=== PATIENT | female | born 1990 | race Hispanic/Latino ===

== ENCOUNTER 2024-04-23 17:52 | Emergency (ER) | payer BC ==
[~2024-04-23] VITALS: Ht 152.4 cm; Wt 79.4 kg
[~2024-04-23 17:52] MED LIST: LEVO500T2 PO; TAMS-1 PO
[2024-04-23 18:12] VITALS: BP 129/96; PULSE 81; RESP 18; TEMP 98.6
--- NOTE | 2024-04-23 18:26 | EKG ---
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
[2024-04-23] MEDS ORDERED: hydrOXYzine 25 MG TABLET PO ONE (18:30)
[2024-04-23] MEDS ORDERED: 0.9%NACL 1000ML 1,000 ML IV ONE (18:30)
[2024-04-23 18:53] LABS: BASOPHILS # (AUTO) 0.06 K/uL (0.00-0.20); BASOPHILS % (AUTO) 0.5 % (0.0-5.0); EOSINOPHILS # (AUTO) 0.25 K/uL (0.00-0.70); EOSINOPHILS % (AUTO) 2.2 % (0.0-8.0); HEMATOCRIT 37.7 % (36-48); IMMATURE GRANULOCYTE ABSOLUTE 0.05 K/uL (0-1); LYMPHOCYTES # (AUTO) 3.3 K/uL (1.0-4.8); LYMPHOCYTES % (AUTO) 28.1 % (21.0-51.0); MEAN CORPUSCULAR HEMOGLOBIN 27.1 pg (27.0-33.0); MEAN CORPUSCULAR HGB CONC 32.4 g/dL (32.0-36.0); MEAN CORPUSCULAR VOLUME 83.6 fL (79-99); MONOCYTES # (AUTO) 0.7 K/uL (0.1-1.0); MONOCYTES % (AUTO) 6.3 % (3.0-13.0); NEUTROPHILS # (AUTO) 7.2 K/uL (1.8-7.7); NEUTROPHILS % (AUTO) 62.5 % (40.0-77.0); PLATELET COUNT (AUTO) 226 K/uL (130-400); RED BLOOD CELL COUNT(AUTO) 4.51 MIL/uL (4.00-5.50); RED CELL DISTRIBUTION WIDTH 14.9 % (11.0-15.5); WHITE BLOOD COUNT (AUTO) 11.6 K/uL (4.8-10.8)
[2024-04-23 19:02] LABS: CREATININE 0.7 mg/dL (0.5-1.0); POTASSIUM 3.1 mmol/L (3.5-5.1)
[2024-04-23 19:13] LABS: MAGNESIUM 1.6 mg/dL (1.80-2.40)
--- NOTE | 2024-04-23 19:30 | NUR ---
PATIENT BROUGHT BACK TO ED 15
--- NOTE | 2024-04-23 19:38 | HMCIMG ---
CHEST 1VW REASON: sob COMPARISON: None. FINDINGS: Single view of the chest was obtained. Lungs are clear. Heart size is normal. There is no pulmonary vascular congestion. Mediastinum and bony thorax appear unremarkable. IMPRESSION: 1. Normal single view chest x-ray.
--- NOTE | 2024-04-23 19:55 | ERN ---
ED Note History of Present Illness Stated Complaint: HARD TIME BREATHING Chief Complaint: Shortness of Breath Time Seen by MD: 17:56 Time Seen by Midlevel: 17:56 Dictation: The patient is a 33-year-old female with no past medical history who presents to the emergency department with complaints of chest pain, shortness of breath, bilateral hand cramping for over a year. Patient reports she has been seen multiple times for this problem but is unsure of the diagnosis. Patient denies any anxiety. Denies cough fevers, nausea vomiting or diarrhea or constipation. Patient also reports occasional bright red stools. Denies any rectal pain or trauma. Allergies: Coded Allergies: No Known Drug Allergies (Unverified Allergy, Unknown, 03/17/17) Home Meds Active Scripts Levofloxacin (Levaquin) 500 Mg Tablet, 500 MG PO DAILY, #10 TAB Prov:LYNN GRAY MD 03/20/17 Tamsulosin HCl (Flomax) 0.4 Mg Cap.er.24h, 0.4 MG PO DAILY, #30 CAPSULE.DR Prov:LYNN GRAY MD 03/20/17 Past Medical History Past Medical History: No Pertinent History Surgical History: None History: Not Applicable RN Note Reviewed/Agreed w/PFSH: Yes Review of System Dictation Constitutional: Negative for fever,chills, and weight loss Eyes: Negative for injury, pain,redness, and discharge ENT: Negative for injury,pain or swelling Cardiovascular: Negative for palpitations, and edema positive for chest pain Respiratory: Negative for, cough, and wheezing, positive for shortness of breath Abdomen/GI: Negative for abdominal pain, nausea, vomiting, diarrhea, and constipation Back: Negative for injury and pain : Negative for injury, bleeding and discharge positive for rectal bleeding MS/Extremity: Negative for injury and deformity Skin: Negative for rash, and discoloration Neuro: Negative for headache, weakness, numbness, tingling, and seizure Psych: Negative for suicide ideation, homicidal ideation, and hallucinations Initial Vital Sign VS Vital Signs Date Time Temp Pulse Resp B/P (MAP) Pulse Ox O2 Delivery O2 Flow Rate FiO2 04/23/24 18:12 98.6 81 18 129/96 99 Physical Exam Dictation General: awake, alert, NAD Head/Face: Normocephalic, atraumatic Eyes: PERRL, EOMI, vision at baseline ENT: oral cavity clear, TMs clear, no signs of infection Neck: Trachea midline, supple, no nuchal rigidity Cardiovascular: RRR, normal S1/S2, No MRGs, no JVD Respiratory: CTAB, no respiratory distress, No rales or wheezes Abdomen: Soft, non-tender, non-distended, normal bowel sounds, no guarding or rebound. Skin: Warm, dry, normal turgor, no rash MS/Extremity: Pulses equal, no cyanosis, neurovascular intact, FROM Neuro: COAx4, GCS 15, strength 5/5, CN 2-12 intact, normal cerebellar exam, normal gait, Psych: Normal behavior, mood, and affect normal Results (Laboratory/Radiology) Laboratory/Radiology Laboratory Tests Test 04/23/24 18:30 White Blood Count 11.6 K/uL (4.8-10.8) H Red Blood Count 4.51 MIL/uL (4.00-5.50) Hemoglobin 12.2 g/dL (12.0-16.0) Hematocrit 37.7 % (36-48) Mean Corpuscular Volume 83.6 fL (79-99) Mean Corpuscular Hemoglobin 27.1 pg (27.0-33.0) Mean Corpuscular Hemoglobin Concent 32.4 g/dL (32.0-36.0) Red Cell Distribution Width 14.9 % (11.0-15.5) Platelet Count 226 K/uL (130-400) Mean Platelet Volume 10.9 fL (7.5-10.5) H Immature Granulocyte % (Auto) 0.4 % (0-1) Neutrophils (%) (Auto) 62.5 % (40.0-77.0) Lymphocytes (%) (Auto) 28.1 % (21.0-51.0) Monocytes (%) (Auto) 6.3 % (3.0-13.0) Eosinophils (%) (Auto) 2.2 % (0.0-8.0) Basophils (%) (Auto) 0.5 % (0.0-5.0) Neutrophils # (Auto) 7.2 K/uL (1.8-7.7) Lymphocytes # (Auto) 3.3 K/uL (1.0-4.8) Monocytes # (Auto) 0.7 K/uL (0.1-1.0) Eosinophils # (Auto) 0.25 K/uL (0.00-0.70) Basophils # (Auto) 0.06 K/uL (0.00-0.20) Absolute Immature Granulocyte (auto 0.05 K/uL (0-1) Nucleated Red Blood Cells 0.0 % (0.0-0.19) Sodium Level 135 mmol/L (136-145) L Potassium Level 3.1 mmol/L (3.5-5.1) L Chloride Level 100 mmol/L (101-111) L Carbon Dioxide Level 26 mmol/L (21-32) Blood Urea Nitrogen 8 mg/dL (7-18) Creatinine 0.7 mg/dL (0.5-1.0) Glomerular Filtration Rate Calc 117 mL/min (>90) Random Glucose 99 mg/dL (70-105) Total Calcium 8.6 mg/dL (8.5-10.1) Magnesium Level 1.60 mg/dL (1.80-2.40) L Total Creatine Kinase 57 U/L (21-232) Troponin I High Sensitivity < 4 ng/L (4-50) L Serum Test, Qualitative NEGATIVE (NEGATIVE) REASON: sob ORDERING PHYSICIAN: ALEX KOENIG PROCEDURE: CXR1VW - CHEST 1VW CHEST 1VW REASON: sob COMPARISON: None. FINDINGS: Single view of the chest was obtained. Lungs are clear. Heart size is normal. There is no pulmonary vascular congestion. Mediastinum and bony thorax appear unremarkable. IMPRESSION: 1. Normal single view chest x-ray. Labs Reviewed?: Yes EKG: (+) NSR (Status rhythm), (+) DC (169), (+) QRS (70) EKG Comment: EKG 04/23/2024 1823 ventricular rate 72, regular rate and rhythm, normal sinus rhythm, no STEMI. ED Course ED Course Orders Procedure Category Date Status Time Cbc With Differential LAB 04/23/24 Complete 18:14 Chest 1vw RAD 04/23/24 Resulted 18:14 12 Lead Ekg Tracing- EKG 04/23/24 Resulted Technical 18:14 0.9%Nacl 1000ml (Ns PHA 04/23/24 Complete 1000ml) 18:30 Troponin I High LAB 04/23/24 Complete Sensitivity 18:14 Basic Metabolic Panel LAB 04/23/24 Complete 18:14 Testing, LAB 04/23/24 Complete Serum Hcg 18:14 Magnesium LAB 04/23/24 Complete 18:14 Creatine Kinase, Total LAB 04/23/24 Complete 18:14 Hydroxyzine 25mg Tab PHA 04/23/24 Complete (Atarax 25mg Tab) 18:30 Magnesium 2gm Premix PHA 04/23/24 Complete 50ml (Magnesium 2gm 20:00 Potassium Bicarb/Cit PHA 04/23/24 Complete Ac 25meq (K-Lyte Ta 20:00 Current Medications Medications (Trade) Dose Ordered Sig/Noelle Route PRN Reason Start Time Stop Time Status Last Admin Dose Admin Hydroxyzine HCl (ATArax 25MG TAB) 25 mg ONCE ONCE PO 04/23/24 18:30 04/23/24 18:31 DC Magnesium Sulfate 50 ml @ 0 mls/hr PROTOCOL IV 04/23/24 20:00 04/23/24 20:23 DC Potassium Bicarbonate (K-Lyte Tablet Eff 25 Meq Tablet.eff) 25 meq ONCE PO 04/23/24 20:00 04/23/24 20:23 DC Sodium Chloride 1,000 ml @ 0 mls/hr ONCE ONCE IV 04/23/24 18:30 04/23/24 18:31 DC Vital Signs Date Time Temp Pulse Resp B/P (MAP) Pulse Ox O2 Delivery O2 Flow Rate FiO2 04/23/24 18:12 98.6 81 18 129/96 99 Medical Decision Making MDM MDM: The patient is a 33-year-old female with no past medical history who presents to the emergency department with complaints of chest pain, shortness of breath, bilateral hand cramping for over a year. Patient reports she has been seen multiple times for this problem but is unsure of the diagnosis. Patient denies any anxiety. Denies cough fevers, nausea vomiting or diarrhea or constipation. Patient also reports occasional bright red stools. Denies any rectal pain or trauma. CBC showed mild leukocytosis, no anemia, chemistry showed mild hyponatremia, hypokalemia, hypochloremia, hypomagnesemia. Electrolytes were replaced in the ER. Chest x-ray unremarkable, EKG unremarkable, negative troponin. Differential diagnosis: ACS, anxiety, electrolyte imbalance, dehydration, hemorrhoids Was informed by nursing staff the patient left AMA. Medications-Per medication reconciliation Need for hospitalization: Patient does not meet criteria for hospitalization. There are no social concerns with this patient. DX & DISP Disposition: AMA Departure Condition: Stable Referrals: NONE (PCP) I have reviewed the case, and I agree with, Diagnosis and Plan ATTESTATION BY PHYSICIAN I PERFORMED THE SUBSTANTIVE PORTION OF THE VISIT. I HAVE REVIEWED AND PERSONALLY MADE AND APPROVED THE MANAGEMENT PLAN THAT IS DOCUMENTED IN THE NOTE BY MYSELF FOR THE A PP. I ACKNOWLEDGED FOR RESPONSIBILITY FOR THE PATIENT'S MANAGEMENT PLAN. ALEX KOENIG Apr 23, 2024 19:54 CARLOS NAIDU MD Apr 24, 2024 05:10
[2024-04-23] MEDS ORDERED: PoTASSium BIcarbonate/CIT AC 25 MEQ TABLET.EFF PO SCH (20:00)
[2024-04-23] MEDS ORDERED: MAGNESIUM 2GM PREMIX 50ML 50 ML IV SCH (20:00)
--- NOTE | 2024-04-23 20:00 | NUR ---
PATIENT AMA NOTE; PATIENT REQUESTING TO LEAVE AMA AT THIS TIME; PATIENT STATES "MY KIDS ARE WAITING OUTSIDE FOR ME AND THIS IS TAKING TOO LONG". PATIENT REINFORCED THE RISK AND CONCEQUENCES INVOLVED WITH LEAVING LEAVING HOSPITAL AT THIS TIME INCLUDING BUT NOT LIMITED TO THE BENIFITS OF CONTINUED TX AND DIAGNOSTICS ORDERED. PATIENT STATES UNDERSTANDING AND CONTINUES TO WISH TO LEAVE AMA. PATIENT ADVISED AND REINFORCED TO CALL 911 OR RETURN TO NEAREST ED FOR RETURN OR WORSENING OF SIGNS AND SYMPTOMS. PATIENT STATES UNDERSTANDING AT FULL DECISIONAL CAPACITY. ED MIDLEVEL AWARE. V/S 128/74 88 99% 18 98.4
== END 2024-04-23 20:00 | disposition left against medical advice (07) ==
LOC: EDH 17:52
DX: R07.89 Other chest pain (principal); R06.02 Shortness of breath
CPT/HCPCS: 36415; 71045; 80048; 82550; 83735; 84484; 84703; 85025; 93005; 99284

== ENCOUNTER 2024-05-19 10:59 | Emergency (ER) | payer SELFPAY ==
[~2024-05-19] VITALS: Ht 157.5 cm; Wt 77.1 kg
--- NOTE | 2024-05-19 11:18 | ERN ---
ED Note History of Present Illness Stated Complaint: VAG BLEED 4 WEEKS GESTATION Chief Complaint: OB<20 weeks gest. Time Seen by MD: 11:15 Dictation: Patient is a 33-year-old female who presents to the ED for possible and vaginal spotting. Patient states she took a test 2 days ago which was positive and since she has had some vaginal spotting and cramps. Patient denies any fevers, chills, chest pain. She admits to having some nausea. Patient is not taking any medications currently. She does not have an established OBGYN or primary care provider Allergies: Coded Allergies: No Known Drug Allergies (Unverified Allergy, Unknown, 03/17/17) Home Meds Active Scripts Levofloxacin (Levaquin) 500 Mg Tablet, 500 MG PO DAILY, #10 TAB Prov:LYNN GRAY MD 03/20/17 Tamsulosin HCl (Flomax) 0.4 Mg Cap.er.24h, 0.4 MG PO DAILY, #30 CAPSULE.DR Prov:LYNN GRAY MD 03/20/17 Past Medical History Past Medical History: No Pertinent History Surgical History: Cholecystectomy History: Not Applicable Review of System Dictation Constitutional-no chills, weight loss/gain, fever Eyes-no injury, pain, redness and discharge ENT-no injury, pain, swelling Cardiovascular no chest pain, palpitations, edema Respiratory no shortness of breath, cough, wheezing Abdomen/GI-no abdominal pain, diarrhea, constipation, vomiting, positive for nausea and abdominal cramping Back no injury and pain Genitourinary no injury and discharge. Positive for vaginal spotting Musculoskeletal/extremities no injury, deformity Skin no rash, discoloration Neuro-no headache, weakness, numbness, tingling, seizures, tremors Psych-no suicidal ideation, homicidal ideation, hallucinations, depression, anx iety, memory loss Initial Vital Sign VS Vital Signs Date Time Temp Pulse Resp B/P (MAP) Pulse Ox O2 Delivery O2 Flow Rate FiO2 05/19/24 11:00 98.4 70 20 114/75 0 Room Air 0 05/19/24 12:35 21 Physical Exam Dictation VITAL SIGNS: Reviewed. GENERAL APPEARANCE: Alert, oriented x3, no acute distress, obese. HEAD AND FACE: Non-traumatic. EYES: PERRL, pink conjunctivas, eyelid no trauma, anterior chamber clear. EARS: Pinnas intact and no signs of trauma or erythema. Ear canals clear and no discharge. TMs no erythema. NOSE: No discharge, no bleeding. OROPHARYNX: Mouth normal, teeth no caries, tongue pink. Pharynx clear, no erythema. Tonsils no exudates, no abscesses noted. Mucous membrane moist. NECK: Supple, non-tender, no thyromegaly, no masses, no JVD, no bruits. BREAST: Deferred. CHEST: No tenderness, no crepitus, no paradoxical movement, no retractions. LUNGS: Clear, well-ventilated, symmetric, no rales, no wheezing, no rhonchi, no stridor, good breath sounds bilaterally. HEART: Regular rate, regular rhythm, no murmur, no gallops. VASCULAR: No peripheral edema. ABDOMEN: Soft, positive bowel sounds, nondistended, no guarding, nontender, no rebound, no masses no hepatomegaly, no splenomegaly, no Judge's sign, no hernias. RECTAL: Swelling, lesion, possible pilonidal cyst GENITAL: Deferred. NEUROLOGICAL: Normal speech, gross motor function intact, gross sensory function intact. MUSCULOSKELETAL: Neck nontender, full range of motion, back nontender, full range of motion. EXTREMITIES: Nontender, full range of motion. SKIN: Color pink, dry, no turgor, no rash, no lacerations, no abrasions, no contusions. LYMPHATICS: Deferred. Results (Laboratory/Radiology) Laboratory/Radiology Laboratory Tests Test 05/19/24 11:15 05/19/24 11:22 Urine Color COLORLESS (YELLOW) Urine Appearance CLEAR (CLEAR) Urine pH 6.5 (5.0-8.0) Urine Specific [place] 1.004 (1.001-1.031) Urine Protein NEGATIVE mg/dL (NEGATIVE) Urine Glucose (UA) NEGATIVE mg/dL (NEGATIVE) Urine Ketones NEGATIVE mg/dL (NEGATIVE) Urine Occult Blood MODERATE (NEGATIVE) H Urine Nitrate NEGATIVE (NEGATIVE) Urine Bilirubin NEGATIVE mg/dL (NEGATIVE) Urine Urobilinogen 0.2 mg/dL (0.2-1.0) Urine Leukocyte Esterase NEGATIVE Amanda/uL Urine RBC 0-1 /HPF (0-1) Urine WBC 0-1 /HPF (0-1) Urine Bacteria None /HPF (None Seen) Urine HCG, Qualitative NEGATIVE (NEGATIVE) White Blood Count 10.1 K/uL (4.8-10.8) Red Blood Count 4.20 MIL/uL (4.00-5.50) Hemoglobin 11.2 g/dL (12.0-16.0) L Hematocrit 34.8 % (36-48) L Mean Corpuscular Volume 82.9 fL (79-99) Mean Corpuscular Hemoglobin 26.7 pg (27.0-33.0) L Mean Corpuscular Hemoglobin Concent 32.2 g/dL (32.0-36.0) Red Cell Distribution Width 14.6 % (11.0-15.5) Platelet Count 212 K/uL (130-400) Mean Platelet Volume 10.8 fL (7.5-10.5) H Immature Granulocyte % (Auto) 0.3 % (0-1) Neutrophils (%) (Auto) 66.6 % (40.0-77.0) Lymphocytes (%) (Auto) 22.7 % (21.0-51.0) Monocytes (%) (Auto) 8.3 % (3.0-13.0) Eosinophils (%) (Auto) 1.7 % (0.0-8.0) Basophils (%) (Auto) 0.4 % (0.0-5.0) Neutrophils # (Auto) 6.7 K/uL (1.8-7.7) Lymphocytes # (Auto) 2.3 K/uL (1.0-4.8) Monocytes # (Auto) 0.8 K/uL (0.1-1.0) Eosinophils # (Auto) 0.17 K/uL (0.00-0.70) Basophils # (Auto) 0.04 K/uL (0.00-0.20) Absolute Immature Granulocyte (auto 0.03 K/uL (0-1) Nucleated Red Blood Cells 0.0 % (0.0-0.19) Sodium Level 142 mmol/L (136-145) Potassium Level 4.0 mmol/L (3.5-5.1) Chloride Level 105 mmol/L (101-111) Carbon Dioxide Level 30 mmol/L (21-32) Blood Urea Nitrogen 6 mg/dL (7-18) L Creatinine 0.8 mg/dL (0.5-1.0) Glomerular Filtration Rate Calc 100 mL/min (>90) Random Glucose 93 mg/dL (70-105) Total Calcium 9.0 mg/dL (8.5-10.1) Total Bilirubin 0.2 mg/dL (0.2-1.0) Aspartate Amino Transf (AST/SGOT) 13 U/L (10-37) Alanine Aminotransferase (ALT/SGPT) 14 U/L (12-78) Alkaline Phosphatase 66 U/L (50-136) Total Protein 7.5 g/dL (6.0-8.3) Albumin 3.9 g/dL (3.5-5.0) Human Chorionic Gonadotropin, Quant 0 mIU/mL (0-5) ED Course ED Course Orders Procedure Category Date Status Time Cbc With Differential LAB 05/19/24 Complete 11:03 Comprehensive LAB 05/19/24 Complete Metabolic Panel 11:03 Urinalysis LAB 05/19/24 Complete W/Microscopic 11:03 ,Urine Test LAB 05/19/24 Complete 11:03 Hcg,Quantitative LAB 05/19/24 Complete 11:03 Vital Signs Date Time Temp Pulse Resp B/P (MAP) Pulse Ox O2 Delivery O2 Flow Rate FiO2 05/19/24 12:35 98.8 87 19 141/62 99 Room Air* 0 21 05/19/24 11:00 98.4 70 20 114/75 0 Room Air 0 Medical Decision Making [facility] INITIAL IMPRESSION Initial history and physical concerning for dysmenorrhea Contributing medical problems: I have reviewed the triage nursing notes and vital signs. Initial plan: Laboratory evaluation DATA REVIEW I have reviewed additional NN, repeat VS, and monitoring where indicated. Heart rate, blood pressure, and O2 saturation are acceptable. ED COURSE Interventions: Reassessment: DISPOSITION Final diagnostic impression: Dysmenorrhea I discussed my findings, clinical impression and treatment recommendations with the patient. My final plan for disposition was made based upon -mild risk of complications and potential morbidity of the patient's condition. -Discussion with the patient regarding management options. Patient discharged and advised to follow up PCP as needed DX & DISP Disposition: Discharge Departure Impression: Primary Impression: Dysmenorrhea Additional Impressions: Menstrual cramp, Delayed period Condition: Stable Additional Instructions: FOLLOW-UP WITH PRIMARY CARE PROVIDER IN 1 TO 2 DAYS. TAKE MEDICATIONS DIRECTED HERE IN THE EMERGENCY ROOM. OKAY TO CONTINUE HOME MEDICATIONS UNLESS OTHERWISE DISCUSSED DURING YOUR VISIT IN THE EMERGENCY ROOM TODAY. RETURN TO YOUR NEAREST EMERGENCY ROOM IF SYMPTOMS WORSEN OR IF THERE IS NO IMPROVEMENT. CALL 911 IF YOU NEED IMMEDIATE ASSISTANCE. TAKE TYLENOL [id number] NEEDED AND IF NO CONTRAINDICATIONS ARE PRESENT. INCREASE ORAL HYDRATION. A WOUND CULTURE OR URINE CULTURE WAS ORDERED HERE IN THE EMERGENCY ROOM DEPARTMENT PLEASE FOLLOW-UP WITH PRIMARY CARE PROVIDER AND ADVISE THEM TO GET REPEAT PORTS FROM OUR FACILITY. IF YOU HAD ANY MERYL WRAP/SPLINTS THAT WERE APPLIED HERE, PLEASE DO NOT REMOVE THEM UNTIL YOU SEE YOUR PRIMARY CARE OR SPECIALTY. Referrals: KARYN GOLDSTEIN (PCP) Time of Disposition: 12:13 I have reviewed I have reviewed the case I WAS PRESENT AND PARTICIPATED IN THE CARE OF THIS PATIENT ALONGSIDE WITH THE RESIDENT PHYSICIAN. I HAVE REVIEWED AND PERSONALLY MADE AND APPROVED THE MANAGEMENT PLAN THAT IS DOCUMENTED IN THE NOTE BY MYSELF WITH THE RESIDENT PHYSICIAN. I ACKNOWLEDGED FOR RESPONSIBILITY FOR THE PATIENT'S MANAGEMENT PLAN. I have examined patient NOMI ROSAS MD May 19, 2024 11:18 CARLOS NAIDU MD May 22, 2024 08:04
[2024-05-19 11:30] LABS: BASOPHILS # (AUTO) 0.04 K/uL (0.00-0.20); BASOPHILS % (AUTO) 0.4 % (0.0-5.0); EOSINOPHILS # (AUTO) 0.17 K/uL (0.00-0.70); EOSINOPHILS % (AUTO) 1.7 % (0.0-8.0); HEMATOCRIT 34.8 % (36-48); IMMATURE GRANULOCYTE ABSOLUTE 0.03 K/uL (0-1); LYMPHOCYTES # (AUTO) 2.3 K/uL (1.0-4.8); LYMPHOCYTES % (AUTO) 22.7 % (21.0-51.0); MEAN CORPUSCULAR HEMOGLOBIN 26.7 pg (27.0-33.0); MEAN CORPUSCULAR HGB CONC 32.2 g/dL (32.0-36.0); MEAN CORPUSCULAR VOLUME 82.9 fL (79-99); MONOCYTES # (AUTO) 0.8 K/uL (0.1-1.0); MONOCYTES % (AUTO) 8.3 % (3.0-13.0); NEUTROPHILS # (AUTO) 6.7 K/uL (1.8-7.7); NEUTROPHILS % (AUTO) 66.6 % (40.0-77.0); PLATELET COUNT (AUTO) 212 K/uL (130-400); RED CELL DISTRIBUTION WIDTH 14.6 % (11.0-15.5); WHITE BLOOD COUNT (AUTO) 10.1 K/uL (4.8-10.8)
[2024-05-19 11:50] LABS: APPEARANCE,URINE CLEAR (CLEAR); BILIRUBIN,URINE NEGATIVE (NEGATIVE); COLOR,URINE COLORLESS (YELLOW); GLUCOSE, URINE (UA) NEGATIVE (NEGATIVE); KETONES,URINE NEGATIVE (NEGATIVE); LEUKOCYTE ESTERASE ,URINE NEGATIVE Leu/uL (NEGATIVE); NITRATE,URINE NEGATIVE (NEGATIVE); OCCULT BLOOD,URINE MODERATE (NEGATIVE); PH,URINE 6.5 (5.0-8.0); PROTEIN,URINE NEGATIVE (NEGATIVE); RBC,URINE 0-1 /HPF (0-1); UROBILINOGEN,URINE 0.2 mg/dL (0.2-1.0); WBC,URINE 0-1 /HPF (0-1)
[2024-05-19 11:53] LABS: HCG,QUALITATIVE URINE NEGATIVE (NEGATIVE)
[2024-05-19 12:04] LABS: ALBUMIN 3.9 g/dL (3.5-5.0); BILIRUBIN,TOTAL 0.2 mg/dL (0.2-1.0); CREATININE 0.8 mg/dL (0.5-1.0); TOTAL PROTEIN, SERUM 7.5 g/dL (6.0-8.3)
[2024-05-19 12:35] VITALS: BP 141/62; PULSE 87; RESP 19; TEMP 98.7; O2SAT 99
== END 2024-05-19 13:01 | disposition home or self-care (01) ==
LOC: EDH 10:59
DX: O26.891 Other specified pregnancy related conditions, first trimester (principal); N94.6 Dysmenorrhea, unspecified; R10.2 Pelvic and perineal pain; R25.2 Cramp and spasm; Z3A.01 Less than 8 weeks gestation of pregnancy; Z90.49 Acquired absence of other specified parts of digestive tract
CPT/HCPCS: 36415; 80053; 81001; 81025; 84702; 85025; 99283